=== PATIENT | female | born 1995 | race African-American/Black ===

== ENCOUNTER 2017-10-11 11:36 | Emergency (ER) | payer MEDICAID ==
[~2017-10-11] VITALS: Ht 170.2 cm; Wt 105.2 kg
[2017-10-11 11:49] VITALS: BP 139/74
[2017-10-11] MEDS ORDERED: DIPHENHYDRAMINE 50 MG CAPSULE ONE (13:54)
[2017-10-11] MEDS ORDERED: PHENAZOPYRIDINE 200 MG TABLET ONE (13:54)
[2017-10-11] MEDS ORDERED: PHENAZOPYRIDINE 200 MG TABLET PO ONE (14:00)
[2017-10-11] MEDS ORDERED: DIPHENHYDRAMINE 25 MG CAPSULE PO ONE (14:00)
[2017-10-11 14:16] LABS: HCG UR LOT HCG7030192
[2017-10-11 14:30] LABS: HCG UR OBC PASS
== END 2017-10-11 15:52 | disposition home or self-care (01) ==
LOC: ED 15:45
DX: Z76.0 Encounter for issue of repeat prescription (principal); N30.01 Acute cystitis with hematuria; L20.9 Atopic dermatitis, unspecified
CPT/HCPCS: 81001; 81025; 87077; 87086; 87186; 99284; Q0163

== ENCOUNTER 2018-05-30 11:29 | Emergency (ER) | payer MEDICAID ==
[~2018-05-30] VITALS: Ht 170.2 cm; Wt 87.0 kg
[2018-05-30 11:32] VITALS: BP 120/70
[2018-05-30] MEDS ORDERED: metroNIDAZOLE 500 MG TABLET ONE (12:28)
[2018-05-30] MEDS ORDERED: CEFTRIAXONE 250 MG ONE (12:28)
[2018-05-30] MEDS ORDERED: LIDOCAINE-MPF 2% ,5ML ONE (12:28)
[2018-05-30] MEDS ORDERED: AZITHROMYCIN 250 MG TABLET ONE (12:28)
[2018-05-30] MEDS ORDERED: AZITHROMYCIN 500 MG TABLET PO ONE (12:30)
[2018-05-30] MEDS ORDERED: CEFTRIAXONE 250 MG IM ONE (12:30)
[2018-05-30] MEDS ORDERED: metroNIDAZOLE 500 MG TABLET PO ONE (12:30)
[2018-05-30 12:39] LABS: MICROSCOPIC AUTO
[2018-05-30 12:40] LABS: CULTURE INDICATED? YES
[2018-05-30 12:42] LABS: HCG UR SG 1.022 (1.003-1.030)
[2018-05-30 12:42] LABS: CLUE CELLS NONE SEEN (NONE SEEN); WET PREP WBCS MODERATE (FEW)
== END 2018-05-30 12:44 ==
LOC: ED 12:38
DX: N89.8 Other specified noninflammatory disorders of vagina (principal); R10.2 Pelvic and perineal pain; R05 Cough; R19.7 Diarrhea, unspecified; F90.9 Attention-deficit hyperactivity disorder, unspecified type; F31.9 Bipolar disorder, unspecified; F12.10 Cannabis abuse, uncomplicated
CPT/HCPCS: 81001; 81025; 87086; 87210; 87491; 87591; 87808; 96372; 99284; J0696